=== PATIENT | male | born 1995 | race Caucasian/White ===

== ENCOUNTER 2018-10-08 15:15 | Emergency (ER) | payer MEDICAID ==
[~2018-10-08] VITALS: Ht 182.9 cm; Wt 79.4 kg
[~2018-10-08 15:15] MED LIST: CLOT15CR73 TP; SULF1TAB49 PO
[2018-10-08 15:27] VITALS: BP 97/73
[2018-10-08] MEDS ORDERED: TETanus/Pertussis (Acell)/Diphther VAC/PF (Tdap-Adult) 0.5ml syringe IM ONE (16:40)
[2018-10-08] MEDS ORDERED: LIDOcaine 1.5% w/epinephrine 1:200,000 5ml ampul IJ ONE (16:40)
[2018-10-08] MEDS ORDERED: LIDOcaine 1% w/EPI 1:100,000 30ml vial (MDV) IJ ONE (16:50)
[2018-10-08] MEDS ORDERED: CEPH-572 PO (17:03)
== END 2018-10-08 17:13 | disposition home or self-care (01) ==
LOC: ER 15:16
DX: L02.416 Cutaneous abscess of left lower limb (principal); F12.90 Cannabis use, unspecified, uncomplicated
CPT/HCPCS: 10060; 99283; J3490

== ENCOUNTER 2022-03-27 11:57 | Emergency (ER) | payer MEDICAID, OTHER ==
[~2022-03-27] VITALS: Ht 182.9 cm; Wt 86.4 kg
[~2022-03-27 11:57] MED LIST changes: -SULF1TAB49 PO
[2022-03-27 12:12] VITALS: BP 135/83
[2022-03-27] MEDS ORDERED: PRED10TA PO (14:12)
[2022-03-27] MEDS ORDERED: triamcinolone acetonide 40mg/ml inj IM ONE (14:15)
== END 2022-03-27 14:36 | disposition home or self-care (01) ==
LOC: ER 11:57
DX: L23.7 Allergic contact dermatitis due to plants, except food (principal); R21 Rash and other nonspecific skin eruption; F12.90 Cannabis use, unspecified, uncomplicated; Z79.899 Other long term (current) drug therapy
CPT/HCPCS: 96372; 99283; J3301